=== PATIENT | male | born 1945 ===

== ENCOUNTER 2017-10-07 11:44 | Outpatient (CLI) | payer MEDICARE, BC ==
--- NOTE | 2017-10-07 15:16 | Diagnostic Imaging Report ---
Indication: Cough Technique: 2 views of the chest Comparison: None Findings: The lungs and pleural spaces are clear. The heart size is normal. There are degenerative proliferative changes of the thoracic spine Impression: No acute process
== END 2017-10-07 13:44 | disposition home or self-care (01) ==
LOC: RAD 11:44
DX: R05 Cough (principal)
CPT/HCPCS: 71046